=== PATIENT | male | born 1985 | race African-American/Black ===

== ENCOUNTER 2021-10-17 09:56 | Emergency (ER) | payer SELFPAY ==
[~2021-10-17] VITALS: Ht 180.3 cm; Wt 73.0 kg
[2021-10-17] MEDS ORDERED: SODIUM CHLORIDE 0.9% 2,000 ML IV ONE (11:15)
[2021-10-17] MEDS ORDERED: MORPHINE SULFATE 4 MG/ML CPJ (NOT FOR IM USE) IV ONE (11:15)
[2021-10-17] MEDS ORDERED: ONDANSETRON HCL 4MG/2ML INJ IV ONE (11:15)
[2021-10-17] MEDS ORDERED: FAMOTIDINE 20MG/2ML VIAL IV ONE (11:15)
[2021-10-17 12:46] VITALS: BP 120/58
== END 2021-10-17 12:47 | disposition left against medical advice (07) ==
LOC: ER 09:56
DX: K29.20 Alcoholic gastritis without bleeding (principal); F10.10 Alcohol abuse, uncomplicated; F12.10 Cannabis abuse, uncomplicated; F17.210 Nicotine dependence, cigarettes, uncomplicated; Z87.828 Personal history of other (healed) physical injury and trauma; Y90.9 Presence of alcohol in blood, level not specified
CPT/HCPCS: 36415; 83690; 96361; 96374; 96375; 99284; J2270; J2405; J3490; J7030